=== PATIENT | female | born 1975 ===

== ENCOUNTER 2024-09-27 17:08 | Inpatient (IN) | payer BC ==
[2024-09-27] MEDS: Iopamidol 612 MG/ML 100 ML Bottle IVPUSH ONE (17:21)
[2024-09-27] MEDS: Sodium Chloride 0.9% 2,000 ML IV ONE (17:30)
[2024-09-27 17:34] LABS: BASOPHILS PERCENT AUTO 0.2 % (0.0-1.0); EOSINOPHILS PERCENT AUTO 1.1 % (1.0-3.0); HEMATOCRIT 40.2 % (37.0-47.0); HEMOGLOBIN 13.3 g/dL (12.0-16.0); LYMPHOCYTES PERCENT AUTO 11.9 % (20.5-50.1); MEAN CORPUSCULAR HEMOGLOBIN 30.5 pg (27.0-34.0); MEAN CORPUSCULAR HGB CONC 33.1 g/dL (33.0-35.0); MEAN CORPUSCULAR VOLUME 92.2 fL (80-100); MONOCYTES PERCENT AUTO 9.9 % (2-8); NEUTROPHILS PERCENT AUTO 76.9 % (42.2-75.2); PLATELET COUNT,PLT 347 10^3/uL (150-450); RED BLOOD CELL COUNT 4.36 10^6/uL (4.2-5.4); WHITE BLOOD CELL COUNT,WBC 16.2 10^3/uL (5.0-10.0)
[2024-09-27 17:44] LABS: APPEARANCE,URINE SLIGHTLY CLOUDY (CLEAR); BILIRUBIN,URINE NEGATIVE (NEGATIVE); COLOR,URINE YELLOW (YELLOW); GLUCOSE,URINE NEGATIVE (NEGATIVE); KETONES,URINE NEGATIVE (NEGATIVE); LEUKOCYTE ESTERASE,URINE MODERATE (NEGATIVE); NITRITE,URINE NEGATIVE (NEGATIVE); OCCULT BLOOD,URINE MODERATE (NEGATIVE); PROTEIN,URINE 100 (NEGATIVE)
[2024-09-27 17:49] LABS: WBC,URINE SEMI-PACKED /HPF (0-5/HPF)
[2024-09-27 17:50] LABS: BACTERIA,URINE MODERATE /HPF (0-FEW/HPF); EPITHELIAL CELLS,URINE FEW /HPF (NOT SEEN); MUCUS,URINE FEW /LPF (NOT SEEN)
[2024-09-27 17:58] LABS: SODIUM,NA 139 mmol/L (136-145)
[2024-09-27] MEDS: Ciprofloxacin in D5W 400 MG in Premix Bag 1 BAG IV ONE (17:58)
[2024-09-27 19:03] LABS: ALANINE AMINOTRANSFERASE,ALT 31 U/L (14-59); ALKALINE PHOSPHATASE 139 U/L (46-116); ASPARTATE AMNIOTRANSFERASE,AST 19 U/L (15-37); BILIRUBIN TOTAL 0.5 mg/dL (0.2-1.0); BLOOD UREA NITROGEN,BUN 9 mg/dL (7-18); BUN/CREATININE RATIO 9.3 (No establ ref range); CALCIUM 8.7 mg/dL (8.5-10.1); CARBON DIOXIDE,CO2 25 mmol/L (21-32); CHLORIDE,CL 101 mmol/L (98-107); CREATININE 0.97 mg/dL (0.55-1.02); EST CRCL DRUG DOSING (CG) 69.22 mL/min; GLUCOSE RANDOM 89 mg/dL (70-99); LIPASE 17 U/L (16-77); PROTEIN TOTAL,TP 7.5 g/dL (6.4-8.2)
[2024-09-27 19:05] LABS: A/G RATIO 0.67; ESTIMATED GFR 71 mL/min (>=60)
[2024-09-27] MEDS: Potassium Chloride 10 MEQ Tab.ER PO ONE (19:11)
[2024-09-27] MEDS: Potassium Chloride 10 MEQ in Premix Bag 1 BAG IV ONE (19:12)
[2024-09-27] MEDS: Acetaminophen 325 MG Tab PO ONE (19:16)
[2024-09-27] MEDS: Acetaminophen 325 MG Tab ONE (19:40)
[2024-09-27] MEDS ORDERED: HYDROmorphone 0.5 MG/0.5 ML Syringe IVPUSH PRN (19:56)
[2024-09-27] MEDS ORDERED: Docusate Sodium 100 MG Cap PO PRN (19:56)
[2024-09-27] MEDS ORDERED: Bisacodyl 5 MG Tab PO PRN (19:56)
[2024-09-27] MEDS: Sodium Chloride 0.9% 1,000 ML IV SCH (20:53)
[2024-09-27] MEDS: Sodium Chloride 0.9% 500 ML IV ONE (21:58)
[2024-09-28] MEDS: Acetaminophen/HYDROcodone 325-5 MG Tab PO PRN (00:24)
[2024-09-28] MEDS: Acetaminophen 325 MG Tab PO PRN (01:43)
[2024-09-28] MEDS ORDERED: Ciprofloxacin in D5W 400 MG in Premix Bag 1 BAG IV SCH (06:00)
[2024-09-28 06:32] LABS: BASOPHILS PERCENT AUTO 0.2 % (0.0-1.0); EOSINOPHILS PERCENT AUTO 0.6 % (1.0-3.0); HEMATOCRIT 33.8 % (37.0-47.0); HEMOGLOBIN 10.9 g/dL (12.0-16.0); LYMPHOCYTES PERCENT AUTO 16.2 % (20.5-50.1); MEAN CORPUSCULAR HEMOGLOBIN 30.2 pg (27.0-34.0); MEAN CORPUSCULAR HGB CONC 32.2 g/dL (33.0-35.0); MEAN CORPUSCULAR VOLUME 93.6 fL (80-100); MONOCYTES PERCENT AUTO 11.2 % (2-8); NEUTROPHILS PERCENT AUTO 71.8 % (42.2-75.2); PLATELET COUNT,PLT 291 10^3/uL (150-450); RED BLOOD CELL COUNT 3.61 10^6/uL (4.2-5.4)
[2024-09-28 07:05] LABS: ANION GAP 13.8 mEq/L (7-13); CALCIUM 8.5 mg/dL (8.5-10.1); CREATININE 0.93 mg/dL (0.55-1.02); EST CRCL DRUG DOSING (CG) 72.19 mL/min; POTASSIUM,K 3.8 mmol/L (3.5-5.1)
[2024-09-28] MEDS ORDERED: LISDEXAMFETAMINE DIMESYLATE 10 MG PO SCH (09:00)
[2024-09-28] MEDS: Losartan 50 MG Tab PO SCH (10:01)
[2024-09-28] MEDS: Ciprofloxacin in D5W 400 MG in Premix Bag 1 BAG IV SCH (10:02)
[2024-09-28] MEDS: Omeprazole 20 MG Cap.CR PO SCH (10:02)
[2024-09-28] MEDS: buPROPion 150 MG Tab.ER PO SCH (10:02)
[2024-09-28] MEDS: Enoxaparin 40 MG/0.4 ML Syringe SUBCUT SCH (10:02)
[2024-09-28] MEDS: Ibuprofen 600 MG Tab PO ONE (11:42)
[2024-09-28] MEDS: VANCOmycin 1.75 GM/350 ML 1.75 GM in Premix Bag 1 BAG IV ONE (14:47)
[2024-09-28] MEDS: Cefepime 2 GM Vial IVPUSH SCH (14:47)
[2024-09-28 19:53] LABS: BASOPHILS PERCENT AUTO 0.3 % (0.0-1.0); EOSINOPHILS PERCENT AUTO 1.6 % (1.0-3.0); HEMOGLOBIN 11.4 g/dL (12.0-16.0); LYMPHOCYTES PERCENT AUTO 19.3 % (20.5-50.1); MEAN CORPUSCULAR HEMOGLOBIN 30.5 pg (27.0-34.0); MEAN CORPUSCULAR HGB CONC 32.6 g/dL (33.0-35.0); MEAN CORPUSCULAR VOLUME 93.6 fL (80-100); MONOCYTES PERCENT AUTO 10.2 % (2-8); NEUTROPHILS PERCENT AUTO 68.6 % (42.2-75.2); PLATELET COUNT,PLT 309 10^3/uL (150-450); RED BLOOD CELL COUNT 3.74 10^6/uL (4.2-5.4)
[2024-09-28 20:13] LABS: ALANINE AMINOTRANSFERASE,ALT 28 U/L (14-59); ALBUMIN 2.8 g/dL (3.4-5.0); ALKALINE PHOSPHATASE 123 U/L (46-116); ANION GAP 11.8 mEq/L (7-13); ASPARTATE AMNIOTRANSFERASE,AST 16 U/L (15-37); BILIRUBIN TOTAL 0.5 mg/dL (0.2-1.0); BLOOD UREA NITROGEN,BUN 6 mg/dL (7-18); BUN/CREATININE RATIO 7.1 (No establ ref range); CALCIUM 8.8 mg/dL (8.5-10.1); CARBON DIOXIDE,CO2 28 mmol/L (21-32); CHLORIDE,CL 106 mmol/L (98-107); CREATININE 0.84 mg/dL (0.55-1.02); EST CRCL DRUG DOSING (CG) 79.93 mL/min; GLUCOSE RANDOM 101 mg/dL (70-99); MAGNESIUM 1.8 mg/dL (1.8-2.4); POTASSIUM,K 3.8 mmol/L (3.5-5.1); PROTEIN TOTAL,TP 6.9 g/dL (6.4-8.2); SODIUM,NA 142 mmol/L (136-145)
[2024-09-28 20:30] LABS: A/G RATIO 0.68; C-REACTIVE PROTEIN > 25.00 ng/dL (<=0.50); ESTIMATED GFR 84 mL/min (>=60)
[2024-09-28 20:36] LABS: CORONAVIRUS COVID-19 NAA NEGATIVE (NEGATIVE); INFLUENZA A NAA NEGATIVE (NEGATIVE); INFLUENZA B NAA NEGATIVE (NEGATIVE)
[2024-09-28] MEDS: Saccharomyces Boulardii (Probiotic) 250 MG Cap PO SCH (21:10)
[2024-09-29 06:28] LABS: BASOPHILS PERCENT AUTO 0.3 % (0.0-1.0); EOSINOPHILS PERCENT AUTO 1.9 % (1.0-3.0); HEMATOCRIT 33.8 % (37.0-47.0); HEMOGLOBIN 11.1 g/dL (12.0-16.0); LYMPHOCYTES PERCENT AUTO 18.5 % (20.5-50.1); MEAN CORPUSCULAR HEMOGLOBIN 30.5 pg (27.0-34.0); MEAN CORPUSCULAR HGB CONC 32.8 g/dL (33.0-35.0); MEAN CORPUSCULAR VOLUME 92.9 fL (80-100); MONOCYTES PERCENT AUTO 9.1 % (2-8); NEUTROPHILS PERCENT AUTO 70.2 % (42.2-75.2); PLATELET COUNT,PLT 313 10^3/uL (150-450); RED BLOOD CELL COUNT 3.64 10^6/uL (4.2-5.4); WHITE BLOOD CELL COUNT,WBC 11.6 10^3/uL (5.0-10.0)
[2024-09-29 06:52] LABS: ALBUMIN 2.7 g/dL (3.4-5.0); ANION GAP 13.5 mEq/L (7-13); BILIRUBIN TOTAL 0.5 mg/dL (0.2-1.0); BUN/CREATININE RATIO 7.3 (No establ ref range); C-REACTIVE PROTEIN 23.16 ng/dL (<=0.50); CREATININE 0.82 mg/dL (0.55-1.02); EST CRCL DRUG DOSING (CG) 81.88 mL/min; MAGNESIUM 1.8 mg/dL (1.8-2.4); POTASSIUM,K 3.5 mmol/L (3.5-5.1); PROTEIN TOTAL,TP 6.8 g/dL (6.4-8.2)
[2024-09-29 06:56] LABS: A/G RATIO 0.66
[2024-09-29] MEDS: VANCOmycin 1.25 GM in Sodium Chloride 0.9% 250 ML IV SCH (08:58)
[2024-09-29] MEDS ORDERED: hydrALAZINE 20 MG/ML SDV IVPUSH PRN (11:51)
[2024-09-29] MEDS: Ondansetron 4 MG/2 ML SDV IVPUSH PRN (20:26)
[2024-09-29] MEDS ORDERED: Flumazenil 0.1 MG/ML 5 ML MDV IVPUSH PRN (21:31)
[2024-09-29] MEDS ORDERED: LORazepam 2 MG/ML SDV IVPUSH PRN (21:31)
[2024-09-29] MEDS ORDERED: Zolpidem 5 MG Tab PO PRN (21:31)
[2024-09-30 06:56] LABS: HEMATOCRIT 34.7 % (37.0-47.0); HEMOGLOBIN 11.7 g/dL (12.0-16.0); MEAN CORPUSCULAR HGB CONC 33.7 g/dL (33.0-35.0); MEAN CORPUSCULAR VOLUME 91.8 fL (80-100); PLATELET COUNT,PLT 384 10^3/uL (150-450); RED BLOOD CELL COUNT 3.78 10^6/uL (4.2-5.4); WHITE BLOOD CELL COUNT,WBC 9.3 10^3/uL (5.0-10.0)
[2024-09-30 06:59] LABS: BASOPHILS PERCENT AUTO 0.6 % (0.0-1.0); EOSINOPHILS PERCENT AUTO 4.2 % (1.0-3.0); LYMPHOCYTES PERCENT AUTO 28.4 % (20.5-50.1); MONOCYTES PERCENT AUTO 10.3 % (2-8); NEUTROPHILS PERCENT AUTO 56.5 % (42.2-75.2)
[2024-09-30 07:20] LABS: ALBUMIN 2.5 g/dL (3.4-5.0); ANION GAP 13.5 mEq/L (7-13); BILIRUBIN TOTAL 0.3 mg/dL (0.2-1.0); BUN/CREATININE RATIO 9.1 (No establ ref range); C-REACTIVE PROTEIN 14.03 ng/dL (<=0.50); CALCIUM 9.1 mg/dL (8.5-10.1); CREATININE 0.88 mg/dL (0.55-1.02); EST CRCL DRUG DOSING (CG) 76.29 mL/min; MAGNESIUM 1.9 mg/dL (1.8-2.4); POTASSIUM,K 3.5 mmol/L (3.5-5.1); PROTEIN TOTAL,TP 6.8 g/dL (6.4-8.2)
[2024-09-30 07:24] LABS: A/G RATIO 0.58
[2024-09-30 08:29] LABS: EOSINOPHILS PERCENT MAN 2 % (1-3); LYMPHOCYTES % ATYPICAL MANUAL 4 %; LYMPHOCYTES PERCENT MAN 30 % (20-50); MONOCYTES PERCENT MAN 13 % (2-8); SEG NEUTROPHILS PERCENT MAN 51 % (42-75)
[2024-09-30] MEDS: VANCOmycin 1 GM in Sodium Chloride 0.9% 250 ML IV SCH (09:23)
[2024-09-30] MEDS: Ciprofloxacin 500 MG Tab PO ONE (22:47)
[2024-10-01 06:30] LABS: HEMATOCRIT 36.2 % (37.0-47.0); HEMOGLOBIN 11.9 g/dL (12.0-16.0); MEAN CORPUSCULAR HEMOGLOBIN 30.4 pg (27.0-34.0); MEAN CORPUSCULAR HGB CONC 32.9 g/dL (33.0-35.0); MEAN CORPUSCULAR VOLUME 92.6 fL (80-100); PLATELET COUNT,PLT 418 10^3/uL (150-450); RED BLOOD CELL COUNT 3.91 10^6/uL (4.2-5.4); WHITE BLOOD CELL COUNT,WBC 10.4 10^3/uL (5.0-10.0)
[2024-10-01 06:47] LABS: EOSINOPHILS PERCENT AUTO 4.4 % (1.0-3.0); LYMPHOCYTES PERCENT AUTO 29.3 % (20.5-50.1); NEUTROPHILS PERCENT AUTO 56.8 % (42.2-75.2)
[2024-10-01 06:48] LABS: BASOPHILS PERCENT AUTO 0.5 % (0.0-1.0)
[2024-10-01 06:53] LABS: ALBUMIN 2.5 g/dL (3.4-5.0); BILIRUBIN TOTAL 0.2 mg/dL (0.2-1.0); BUN/CREATININE RATIO 11.5 (No establ ref range); C-REACTIVE PROTEIN 8.12 ng/dL (<=0.50); CALCIUM 9.1 mg/dL (8.5-10.1); CREATININE 0.87 mg/dL (0.55-1.02); EST CRCL DRUG DOSING (CG) 77.17 mL/min; PROTEIN TOTAL,TP 6.8 g/dL (6.4-8.2)
[2024-10-01 06:57] LABS: A/G RATIO 0.58
[2024-10-01 07:29] LABS: BAND PERCENT MAN 1 %; EOSINOPHILS PERCENT MAN 6 % (1-3); LYMPHOCYTES % ATYPICAL MANUAL 1 %; LYMPHOCYTES PERCENT MAN 27 % (20-50); MONOCYTES PERCENT MAN 8 % (2-8); SEG NEUTROPHILS PERCENT MAN 57 % (42-75)
== END 2024-10-01 09:50 | disposition home or self-care (01) | DRG 720 ==
LOC: DL.ED 17:08 → DL.MS 19:13
PROVIDERS: ADMIT Internal Medicine; ATTEND Internal Medicine
DX: A41.51 Sepsis due to Escherichia coli [E. coli] (principal); E87.20 Acidosis, unspecified; N10 Acute pyelonephritis; I10 Essential (primary) hypertension; F41.9 Anxiety disorder, unspecified; F90.9 Attention-deficit hyperactivity disorder, unspecified type; E87.6 Hypokalemia; E86.0 Dehydration; Z88.0 Allergy status to penicillin
CPT/HCPCS: 0240U; 36415; 71046; 74177; 80048; 80053; 80202; 81001; 81025; 82550; 83605; 83690; 83735; 84484; 85025; 86140; 87040; 87081; 87430; 93005; 96365; 99285; 99285-25; A9270-GY; J0692; J0744; J1650; J2405; J3371; J3372; J3480; J7030; J7050; Q9967